=== PATIENT | female | born 1950 | race Caucasian/White ===

== ENCOUNTER → 2016-02-17 | Day surgery (SDC) | payer MEDICARE, BC ==
[~2016-02-17] MED LIST: Buffered Lidocaine 1% SYR 3ML* 3 ML/SYR SYRINGE INTRADERM ONE; Buffered Lidocaine 1% SYR 3ML* 3 ML/SYR SYRINGE ONE; Bupivacaine 0.5% SDV PF* 30 ML VIAL ONE; Chloroprocaine 2%* 20 ML VIAL ONE; Clindamycin 900 MG IVPREMIX(* 900 MG/50 ML SDV IV ONE; Dexamethasone IV* 4 MG/ML 1 ML (4 MG) IV SLOW PU ONE; Dexamethasone IV* 4 MG/ML 1 ML (4 MG) ONE; DiMENhydriNATE IV* 50 MG/ML VIAL IV PUSH PRN; EPINEPHrine AMP 1 MG/ML ONE; Famotidine IV* 10 MG/ML 2 ML (20 mg) IV ONE; Famotidine IV* 10 MG/ML 2 ML (20 mg) ONE; Ketorolac INJ* 30 MG/ML 1 ML VIAL ONE; Midazolam* 1 MG/ML 5 ML VIAL (5 MG) ONE; Ondansetron INJ* 2 MG/ML VIAL IV PRN; Ondansetron INJ* 2 MG/ML VIAL ONE; Propofol* 10 MG/ML 20 ML BTL IV PUSH ONE; fentaNYL* 50 MCG/ML 2 ML VIAL (100 MCG VIAL) IV PRN; methylPREDNISolone ACETATE 80* 80 MG/ML 1 ML VIAL ONE; oxyCODONE/Acetamin 5/325 MG* TAB ONE; oxyCODONE/Acetamin 5/325 MG* TAB PO PRN
[2016-02-17 17:12] VITALS: BP 138/69
--- NOTE | 2016-02-18 20:29 | OP ---
OPERATIVE NOTE: DATE OF OPERATION: 02/17/16 DATE OF : 48 SURGEON: Aislinn Prado MD METALIZER: ALIREZA White ANESTHESIOLOGIST: Dr. Guerin. ANESTHESIA: Spinal. PRE-OP DIAGNOSIS: Right knee medial meniscal tear and osteochondral defect medially. POST-OP DIAGNOSES: Right knee complex posteromedial meniscal tear, severe osteoarthritis. OPERATIVE PROCEDURE: Right knee arthroscopy with partial medial meniscectomy and medial chondroplas ty. COMPLICATIONS: None. ESTIMATED BLOOD LOSS: Less than 25 cc. SPECIMEN: None. BRIEF HISTORY/INDICATIONS: Ms. Guerrero is a 65-year-old female with years of right knee pain. Sh stefany has been diagnosed with an osteochondral defect in the medial femoral condyle in the past. The pa tient failed conservative treatment with activity modification, intraarticular injections, and pain medication. MRI confirmed a medial meniscal tear. The patient elected to undergo right knee arthro scopy due to continued pain and decreased quality of life. Informed consent was obtained from the p atient. She understood the risks of the procedure included, but were not limited to bleeding, infec tion, damage to nearby structures, continued pain, need for further surgery, stroke, heart attack, b lood clot and . She wished to proceed. INTRAOPERATIVE FINDINGS: Intraoperatively, the patient was noted to have a complex medial meniscal tear involving the posterior one-third in a white-red zone. She had severe arthritic changes of the medial and patellofemoral compartments with exposed subchondral bone along the large portion of the weightbearing surfaces. A discrete osteochondral defect was not visualized along the medial femora l condyle. DESCRIPTION OF PROCEDURE: Ms. Guerrero was identified in the preanesthesia unit. The right lower e xtremity was marked as the correct operative side. Informed consent was signed and placed in the art. The patient was taken to the operating room and placed under spinal anesthesia without difficu lty. Right lower extremity was prepped and draped in the usual sterile fashion. Preop time-out was made to correctly identify the patient's side and site. Appropriate perioperative antibiotics were given within one hour of incision. A 1.5 cm lateral portal incision was made with a 15 blade and carried down to the capsule. A trocar was introduced. As soon as the light and water sources were turned on, there was immediate visuali zation of the suprapatellar pouch. A tour of the knee joint was performed. Suprapatellar patch had no obvious abnormality. The joint fluid did have multiple small fragments of cartilage visible. P atellofemoral joint had grade 3 and 4 [place] cartilage changes with exposed subchondral bone al chacha with trochlear groove of the femur. Medial gutter showed no obvious plica or loose body. Media l compartment showed exposed subchondral bone along the medial femoral condyle. Posteromedial menis cus showed complex tear in the posterior one- third of the medial meniscus. This was displaced ante riorly. ACL appeared to be intact. The knee was put in a [id number] position. There were mini mal degenerative changes in the lateral compartment and no obvious meniscal tear. Latter gutter show ed no loose body or plica. Under direct visualization, a medial portal incision was made with 15 blade. The probe was introduc ed and another tour of the knee joint was performed. No additional findings were noted. A straight biter and shaver were used to perform partial medial meniscectomy. A smooth border of the medial m eniscus was obtained on the border of the white-red and red-red zone. Radiofrequency ablation wand was used to further smooth the edge of the meniscus here. Radiofrequency ablation wand was then use d to perform chondroplasty and along any free flaps of cartilage in the medial compartment. These w ere mainly along the medial femoral condyle. Next, the shaver was placed in the suprapatellar pouch and the knee was copiously irrigated until th ere were no visible fragments of cartilage in the joint fluid. All instruments were carefully remove d. Incisions were closed with 3-0 nylon suture. An intraarticular injection of 80 mg Depo-Medrol a nd 6 cc of 0.25% Marcaine was placed in the right knee joint. The incision was covered with Xerofor m, 4x4s, Webril, Jim wrap and cold pack. The patient's anesthesia was reversed without difficulty. She was taken to the PACU in stable condition. Intended weightbearing will be weightbearing as tole rated. Intended DVT prophylaxis will be aspirin. The patient will follow up in 2 weeks' time for s uture removal. [id number]/[facility] #: [id number]
== END | disposition home or self-care (01) ==
LOC: OR 11:08
PROVIDERS: ATTEND Orthopaedic Surgery Adult Reconstructive Orthopaedic Surgery
DX: M23.231 Derangement of other medial meniscus due to old tear or injury, right knee (principal); M17.11 Unilateral primary osteoarthritis, right knee; M35.00 Sjogren syndrome, unspecified
CPT/HCPCS: A9270-GY; J0171; J1040; J1100; J1885; J2250; J2400; J2405; J2704